=== PATIENT | female | born 1965 | race Hispanic/Latino ===

== ENCOUNTER 2024-03-04 06:10 | Emergency (ER) | payer BC, SELFPAY ==
--- NOTE | ~2024-03-04 | XR_ITS ---
EXAMINATION: XR shoulder LT min 2V DATE: 03/04/2024 07:29 INDICATION: Left shoulder pain. TECHNIQUE: 4 views of left shoulder were obtained. COMPARISON: None. FINDINGS: Bone alignment is normal. No fracture. There is mild osteoarthritis of glenohumeral joint a nd acromioclavicular joint. IMPRESSION: 1. Mild polyarticular osteoarthritis. Reviewed, dictated and finalized at location A.
--- NOTE | ~2024-03-04 | XR_ITS ---
EXAMINATION: XR clavicle LT DATE: 03/04/2024 07:29 INDICATION: Left shoulder pain. TECHNIQUE: 2 views of left clavicle were obtained. COMPARISON: None. FINDINGS: Alignment is normal. No fracture. There is mild osteoarthritis of acromioclavicular joint. IMPRESSION: 1. Mild osteoarthritis of acromioclavicular joint. Reviewed, dictated and finalized at location A.
[2024-03-04 06:35] VITALS: BP 152/98; PULSE 82; RESP 16; TEMP 36.6; O2SAT 100
--- NOTE | 2024-03-04 07:47 | ED.GENADULT ---
HPI - General Adult General Chief complaint: Extremity Injury, Upper Stated complaint: left shoulder/upper arm Time Seen by Provider: 03/04/24 06:59 History of Present Illness HPI narrative: Arabic-speaking. Intensive service used for all communication. #[id number] 59-year-old female presenting to the ED with shoulder pain. Patient states he has history of osteoarthritis and frequently has pain all over body. Her pain today is in her shoulder. She has taken Tylenol minimal relief. The pain her sleeping last night. It is worse with movement. She has had this pain many times in past. Patient is from [place] and will be returning tomorrow. Related Data Allergies Allergy/AdvReac Type Severity Reaction Status Date / Time No Known Allergies Allergy Verified 03/04/24 07:51 [facility] Past Medical History Medical History Osteoarthritis Exam Narrative: APPEARANCE: No apparent distress. Head: atraumatic. EYES: EOMI, NOSE: Atraumatic NECK: Trachea midline RESPIRATORY: No increased rate of breathing CARDIOVASCULAR: RRR, ABDOMINAL: Non-distended MUSCULOSKELETAl: Focal exam of the left upper extremity revealed no swelling or warmth to any of the joints. Pain with active and passive range of motion left shoulder. Arm is neurovascularly intact. NEURO: Alert. Moving 4/4 extremities SKIN:: Warm, dry. Normal color PSYCHIATRIC: Normal affect Course Vital Signs Vital signs: Vital Signs Temperature 97.9 F 03/04/24 06:35 Pulse Rate 82 03/04/24 06:35 Respiratory Rate 16 03/04/24 06:35 Blood Pressure 152/98 H 03/04/24 06:35 Pulse Oximetry 100 03/04/24 06:35 Oxygen Delivery Room Air 03/04/24 06:35 Temperature 97.9 F 03/04/24 06:35 Pulse Rate 82 03/04/24 06:35 Respiratory Rate 16 03/04/24 06:35 Blood Pressure 152/98 H 03/04/24 06:35 Pulse Oximetry 100 03/04/24 06:35 Oxygen Delivery Room Air 03/04/24 06:35 Medical Decision Making MDM Narrative Medical decision making narrative: -Course: 59-year-old female history of osteoarthritis presenting with her typical arthritis pain. Given pain treatment and discharged follow-up with primary care physician -DDX includes but is not limited to: Arthritis, septic joint calcific tendinitis for frozen shoulder -Co-morbidities complicating care: Osteoarthritis -Social determinants of health: Lives in [place], denies use drugs or alcohol -Independent interpretation of studies: X-ray showed arthritis -Interventions: Toradol, oxycodone, Robaxin -Shared decision making / Disposition: Discharged -RX Motrin Tylenol Robaxin Vital Signs Vital Signs: Vital Signs Temperature 97.9 F 03/04/24 06:35 Pulse Rate 82 03/04/24 06:35 Respiratory Rate 16 03/04/24 06:35 Blood Pressure 152/98 H 03/04/24 06:35 Pulse Oximetry 100 03/04/24 06:35 Oxygen Delivery Room Air 03/04/24 06:35 Temperature 97.9 F 03/04/24 06:35 Pulse Rate 82 03/04/24 06:35 Respiratory Rate 16 03/04/24 06:35 Blood Pressure 152/98 H 03/04/24 06:35 Pulse Oximetry 100 03/04/24 06:35 Oxygen Delivery Room Air 03/04/24 06:35 Discharge Plan Discharge Clinical Impression: Arthritis, Acute shoulder pain Patient Disposition: Home, Self-Care Condition: Stable Instructions: Antibiotic Form, Arthritis (ED) Additional Instructions: Use the medications as instructed. Follow-up with your primary care physician. Return emergency department if you develop severe pain or weakness neuro Patient Language: Arabic Prescriptions: New ibuprofen 800 mg tablet 800 mg PO TID PRN (Reason: pain) 7 Days Qty: 21 0RF acetaminophen 500 mg tablet 1,000 mg PO TID PRN (Reason: barb) 7 Days Qty: 42 0RF methocarbamol 750 mg tablet 1,500 mg PO TID Qty: 35 0RF Follow-up/Referrals: PHYSICIAN NOT ON STAFF,NONSTAFF [Primary Care Provider] -
[2024-03-04] MEDS: oxyCODONE HCL (*CRX) 5 MG TAB IR PO (07:52)
[2024-03-04] MEDS: methocarbamoL 750 MG TABLET PO (07:53)
[2024-03-04] MEDS: KETOROLAC 30 MG/ML VIAL (*BKC) IM (07:53)
[2024-03-04 08:20] VITALS: BP 162/103; PULSE 71; RESP 18; O2SAT 96
== END 2024-03-04 08:21 | disposition home or self-care (01) ==
PROVIDERS: Emergency Provider Emergency Medicine
DX: M19.012 Primary osteoarthritis, left shoulder (principal)
CPT/HCPCS: 73000; 73030; 96372; 99284; A9270; J1885